=== PATIENT | male | born 1980 | race Caucasian/White ===

== ENCOUNTER 2020-01-07 10:21 | Emergency (ER) | payer OTHER ==
[~2020-01-07] VITALS: Ht 182.9 cm; Wt 69.8 kg
[2020-01-07 11:00] LABS: ABSOLUTE BASOPHILS 0.1 thou/uL (0.0-0.2); ABSOLUTE EOSINOPHILS 0.2 thou/uL (0.0-0.7); ABSOLUTE MONOCYTES 0.8 thou/uL (0.0-1.2); ABSOLUTE NEUTROPHILS 15.5 thou/uL (1.6-8.1); BASOPHILS 0.6 %; EOSINOPHILS 0.9 %; HEMATOCRIT 46.8 % (42.0-52.0); LYMPHOCYTES 10.6 %; MCH 31.2 pg (26.0-34.0); MCHC 34.1 g/dL (28.0-37.0); MCV 91.4 fL (80.0-100.0); MONOCYTES 4.2 %; MPV 8.3 fl. (7.2-11.1); NUCLEATED RBCS 0 /100WBC; PLATELET COUNT* 242 thou/uL (150-400); POLYS 83.7 %; RBC 5.12 mil/uL (4.50-6.00); RDW-CV 14.6 % (10.5-14.5); WBC 18.5 thou/uL (4.0-11.0)
[2020-01-07 11:04] LABS: CALCIUM 8.7 mg/dL (8.5-10.1); CREATININE 1.1 mg/dL (0.6-1.3); POTASSIUM 3.8 mmol/L (3.5-5.1)
[2020-01-07 11:09] LABS: ALBUMIN 3.9 g/dL (3.4-5.0); TOTAL BILIRUBIN 0.5 mg/dL (<0.1-1.0); TOTAL PROTEIN 7.2 g/dL (6.4-8.2)
[2020-01-07 11:33] LABS: ACETAMINOPHEN < 2 ug/mL (10-30); ALCOHOL < 10 mg/dL (<10); SALICYLATE 4.4 mg/dL (2.8-20.0)
[2020-01-07 11:46] LABS: URINE BILIRUBIN NEGATIVE (Negative); URINE BLOOD NEGATIVE (Negative); URINE CLARITY CLEAR; URINE COLOR YELLOW; URINE GLUCOSE-RANDOM NEGATIVE (Negative); URINE KETONES NEGATIVE (Negative); URINE LEUKOCYTES-REFLEX NEGATIVE (Negative); URINE NITRITE-REFLEX NEGATIVE (Negative); URINE PROTEIN TRACE (Negative)
[2020-01-07 11:52] LABS: AMP/METHAMP Negative (Negative); BARBITURATES Negative (Negative); BENZODIAZEPINES Negative (Negative); COCAINE Negative (Negative); METHADONE Negative (Negative); OPIATES POSITIVE (Negative); PCP Negative (Negative); THC Negative (Negative)
--- NOTE | 2020-01-07 17:32 | EKG ---
[place] [address] ELECTROCARDIOGRAM REPORT Name: KARTHIK LIMOND DANIELITO Room: [facility]#: [id number] Admission: 01/07/20 Attend Phys: Discharge: Date of : 80 Date of Service: 01/07/20 1053 Report #: [id number] THIS REPORT FOR: //name// [facility] ED Test Date: 2020-01-07 Test Time: 10:53:50 Pat Name: AKASH LIMON Department: Room: Gender: [employer] Operator: [facility] : 1980 Requested By: Ryan Holloway Order Number: [id number] Amairani MD: Philip Maria Measurements Intervals [place] Rate: 88 P: 55 SC: 140 QRS: 80 QRSD: 111 T: 49 QT: 355 QTc: 430 Interpretive Statements Sinus rhythm Borderline Q waves in lateral leads ST elev, probable normal early repol pattern No previous ECG available for comparison Electronically Signed On 01-07-2020 17:30:55 CDT by Philip Maria [email or web address] <ELECTRONICALLY SIGNED> By: Philip Maria MD, [facility] 01/07/20 173 1053 1053 Philip Maria MD, FACC /EPI
[2020-01-12 17:36] VITALS: BP 109/62
== END 2020-01-12 17:36 ==
LOC: M.ERS 10:21
PROVIDERS: Emergency Medicine Emergency Medical Services
DX: F32.9 Major depressive disorder, single episode, unspecified (principal); F29 Unspecified psychosis not due to a substance or known physiological condition; F23 Brief psychotic disorder; R45.851 Suicidal ideations; F41.9 Anxiety disorder, unspecified; E03.9 Hypothyroidism, unspecified; Z79.899 Other long term (current) drug therapy

== ENCOUNTER 2020-02-14 14:12 | Emergency (ER) | payer OTHER ==
[~2020-02-14] VITALS: Ht 182.9 cm; Wt 72.6 kg
[2020-02-14 15:43] LABS: ABSOLUTE BASOPHILS 0.1 thou/uL (0.0-0.2); ABSOLUTE EOSINOPHILS 0.1 thou/uL (0.0-0.7); ABSOLUTE LYMPHOCYTES 2.3 thou/uL (0.8-5.3); ABSOLUTE MONOCYTES 1.1 thou/uL (0.0-1.2); ABSOLUTE NEUTROPHILS 7.2 thou/uL (1.6-8.1); BASOPHILS 0.8 %; EOSINOPHILS 0.9 %; HEMATOCRIT 42.9 % (42.0-52.0); HEMOGLOBIN 14.8 gm/dL (14.0-18.0); LYMPHOCYTES 21.1 %; MCH 31.2 pg (26.0-34.0); MCHC 34.5 g/dL (28.0-37.0); MCV 90.6 fL (80.0-100.0); MONOCYTES 9.9 %; NUCLEATED RBCS 0 /100WBC; PLATELET COUNT* 224 thou/uL (150-400); POLYS 67.3 %; RBC 4.74 mil/uL (4.50-6.00); RDW-CV 14.1 % (10.5-14.5); WBC 10.7 thou/uL (4.0-11.0)
[2020-02-14 15:57] LABS: CALCIUM 8.8 mg/dL (8.5-10.1); CREATININE 0.9 mg/dL (0.6-1.3); POTASSIUM 3.5 mmol/L (3.5-5.1)
[2020-02-14 16:02] LABS: ALBUMIN 4.3 g/dL (3.4-5.0); TOTAL BILIRUBIN 0.8 mg/dL (<0.1-1.0); TOTAL PROTEIN 7.5 g/dL (6.4-8.2)
[2020-02-14] MEDS ORDERED: NAPROSYN500 MG PO (17:38)
[2020-02-14 18:07] VITALS: BP 109/61
--- NOTE | 2020-02-15 09:09 | EKG ---
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: [employer] : 1980 Requested By: Raquel Ospina Order Number: [id number] MD: Chidi Pollock Measurements Intervals [place] Rate: 57 P: 16 [place]: 136 QRS: 87 QRSD: 99 T: 62 QT: 429 QTc: 418 Interpretive Statements Sinus rhythm ST elev, probable normal early repol pattern Compared to ECG 01/07/2020 10:53:50 No significant changes Electronically Signed On 02-15-2020 9:08:53 CDT by Chidi Pollock [email or web address] <ELECTRONICALLY SIGNED> By: Chidi Pollock MD, [facility] 02/15/20 0908 1547 1547 Chidi Pollock MD, [facility] /EPI
== END 2020-02-14 18:08 | disposition home or self-care (01) ==
LOC: M.ERS 14:12
PROVIDERS: Nurse Practitioner Family
DX: E86.0 Dehydration (principal); R42 Dizziness and giddiness

== ENCOUNTER 2020-02-15 01:52 | Emergency (ER) | payer OTHER ==
[~2020-02-15] VITALS: Ht 182.9 cm; Wt 72.6 kg
[~2020-02-15 01:52] MED LIST: NAPROSYN500 MG PO
[2020-02-15 02:43] VITALS: BP 123/74
== END 2020-02-15 02:44 | disposition home or self-care (01) ==
LOC: M.ERS 01:52
DX: M54.9 Dorsalgia, unspecified (principal); F17.210 Nicotine dependence, cigarettes, uncomplicated; Z59.0 Homelessness

== ENCOUNTER 2020-09-07 14:52 | Emergency (ER) | payer MEDICAID ==
[~2020-09-07] VITALS: Ht 182.9 cm; Wt 81.7 kg
[2020-09-07] MEDS ORDERED: RISPERDAL2 MG PO (15:06)
[2020-09-07] MEDS ORDERED: LEXAPRO 10 MG T10 M2 PO (15:06)
[2020-09-07] MEDS ORDERED: IBUPROFEN 800800 M1 PO (17:59)
[2020-09-07] MEDS ORDERED: FLEXERIL PO (17:59)
[2020-09-07 18:07] VITALS: BP 128/86
== END 2020-09-07 18:08 | disposition home or self-care (01) ==
LOC: M.ERS 14:52
DX: S16.1XXA Strain of muscle, fascia and tendon at neck level, initial encounter (principal); Z79.899 Other long term (current) drug therapy; V49.9XXA Car occupant (driver) (passenger) injured in unspecified traffic accident, initial encounter; Y93.89 Activity, other specified; Y92.89 Other specified places as the place of occurrence of the external cause; Y99.8 Other external cause status

== ENCOUNTER 2020-11-14 13:04 | Emergency (ER) | payer MEDICAID ==
[~2020-11-14] VITALS: Ht 182.9 cm; Wt 88.5 kg
[~2020-11-14 13:04] MED LIST changes: +FLEXERIL PO; +IBUPROFEN 800800 M1 PO; +LEXAPRO 10 MG T10 M2 PO; +RISPERDAL2 MG PO
[2020-11-14] MEDS ORDERED: IBUPROFEN 800800 M1 PO (14:21)
[2020-11-14] MEDS ORDERED: MEDROLDOSEPACK PO (14:21)
[2020-11-14] MEDS ORDERED: ZANAFLEX4 MG PO (14:21)
[2020-11-14 14:35] VITALS: BP 129/61
== END 2020-11-14 14:36 | disposition home or self-care (01) ==
LOC: M.ERS 13:04
DX: M51.26 Other intervertebral disc displacement, lumbar region (principal); G89.29 Other chronic pain; M47.816 Spondylosis without myelopathy or radiculopathy, lumbar region; Z79.899 Other long term (current) drug therapy; Z87.81 Personal history of (healed) traumatic fracture